=== PATIENT | female | born 1955 | race African-American/Black ===

== ENCOUNTER → 2019-07-26 | Outpatient (CLI) | payer BC ==
--- NOTE | 2019-07-26 13:57 | US ---
EXAMINATION TYPE: US abdomen complete DATE OF EXAM: 07/26/2019 COMPARISON: CT CLINICAL HISTORY: R16.1 Splenomegaly. EXAM MEASUREMENTS: Liver Length: 11.0 cm Gallbladder Wall: 0.2 cm CBD: 0.3 cm Spleen: 7.6 cm Right Kidney: 12.1 x 3.8 x 4.8 cm Left Kidney: not visualized Extensive overlying bowel gas making exam limited and technically difficult. Pancreas: Obscured by bowel gas Liver: somewhat limited visualization, portions visualized wnl Gallbladder: somewhat limited visualization, portions visualized wnl Evidence for sonographic Hunt's sign: no CBD: wnl Spleen: somewhat limited visualization, portions visualized wnl Right Kidney: cyst measuring 3.8 x 3.6 x 4.0cm Left Kidney: not visualized Upper IVC: wnl Abd Aorta: bifurcation obscured by bowel gas The liver is homogenous. The intrahepatic portion of the IVC and proximal abdominal aorta are within normal limits. There is no evidence of cholelithiasis. Common bile duct is unremarkable. The visu alized portions of the pancreas are homogenous. The spleen is unremarkable. Kidneys are symmetric a nd free of hydronephrosis. Right renal cysts noted. IMPRESSION: No evidence of cyst right kidney.
== END | disposition home or self-care (01) ==
LOC: RADUSWWP 11:08
PROVIDERS: ATTEND Internal Medicine Hematology & Oncology
DX: R16.1 Splenomegaly, not elsewhere classified (principal)
CPT/HCPCS: 76700

== ENCOUNTER → 2025-01-24 | Outpatient (CLI) | payer BC ==
--- NOTE | 2025-01-24 15:08 | MM ---
Reason for Exam: Screening (asymptomatic). Last mammogram was performed 1 year(s) and 10 month(s) ago. Patient History: Menarche at age 13. First Full-Term at age 15. Postmenopausal. Patient has history of breast feeding. Paternal aunt had breast cancer under age 50. Sister (Nicole) had breast cancer, age 76. Risk Values: Maureen 5 year model risk: 2.1%. NCI Lifetime model risk: 5.9%. Prior Study Comparison: 02/23/2022 Bilateral Screening Mammogram, [facility]. 04/09/2023 Bilateral Screening Mammogram, [facility]. Tissue Density: There are scattered areas of fibroglandular density. Findings: Analyzed By CAD. There is no suspicious group of microcalcifications or new suspicious mass in either breast. Overall Assessment: Negative, BI-RAD 1 Management: Screening Mammogram of both breasts in 1 year. . Patient should continue monthly self-breast exams. A clinical breast exam by your physician is recommended on an annual basis. This exam should not preclude additional follow-up of suspicious palpable abnormalities. Note on Maureen scores and lifetime risk: 1. A Maureen score greater than 3% is considered moderate risk. If this is the case, consider specialist referral to assess eligibility for a risk reducing agent. 2. If overall lifetime risk for the development of breast cancer is 20% or higher, the patient may qualify for future screening with alternating mammogram and breast MRI. [facility], , 01/24/2025 3:02 PM. Electronically signed and approved by: Renan Hanley M.D. Radiologis
== END | disposition home or self-care (01) ==
LOC: RADMAMWWP 09:58
PROVIDERS: ATTEND Family Medicine
DX: Z12.31 Encounter for screening mammogram for malignant neoplasm of breast (principal); R92.323 Mammographic fibroglandular density, bilateral breasts; Z78.0 Asymptomatic menopausal state; Z80.3 Family history of malignant neoplasm of breast
CPT/HCPCS: 77063; 77067